=== PATIENT | female | born 1995 | race Caucasian/White ===

== ENCOUNTER 2016-12-26 20:52 | Emergency (ER) | payer OTHER ==
[~2016-12-26] VITALS: Ht 162.6 cm; Wt 62.7 kg
[2016-12-26 21:20] VITALS: TEMP 37.1; Ht 162.6 cm; Wt 62.7 kg
[2016-12-26] MEDS ORDERED: BCPILLS PO (21:31)
[2016-12-26] MEDS ORDERED: AZITHROMYCIN 250 MG TAB PO ONE (22:15)
[2016-12-26] MEDS ORDERED: CEFTRIAXONE SOD 350MG/ML 1 GM VIAL IM ONE (22:15)
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
[2016-12-26 22:52] VITALS: BP 116/73; PULSE 100; O2SAT 99
[2016-12-29 01:11] LABS: CHLAMYDIA TRACH RNA*** NOT DETECTED (NOT DETECTED); GC (NEIS GONORRHOEAE)RNA** NOT DETECTED (NOT DETECTED)
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
== END 2016-12-26 22:53 | disposition home or self-care (01) ==
LOC: C.EDB 20:55 → C.EDD 22:53
DX: T19.2XXA Foreign body in vulva and vagina, initial encounter (principal); T74.21XA Adult sexual abuse, confirmed, initial encounter; Y07.9 Unspecified perpetrator of maltreatment and neglect; Y99.8 Other external cause status

== ENCOUNTER → 2017-02-02 | Outpatient (CLI) | payer OTHER ==
[~2017-02-02] MED LIST: BCPILLS PO
== END | disposition home or self-care (01) ==
LOC: C.LABSPEC 13:08
PROVIDERS: ATTEND Obstetrics & Gynecology
DX: N89.8 Other specified noninflammatory disorders of vagina (principal); Z71.1 Person with feared health complaint in whom no diagnosis is made

== ENCOUNTER 2017-12-05 19:19 | Emergency (ER) | payer OTHER ==
[~2017-12-05] VITALS: Ht 162.6 cm; Wt 62.3 kg
[~2017-12-05 19:19] MED LIST changes: -BCPILLS PO; +OFLO0.3D4 OT
[2017-12-05 19:24] VITALS: TEMP 36.4; Ht 162.6 cm; Wt 62.3 kg
[2017-12-05] MEDS ORDERED: RABIES IMMUNE GLOBULIN (HUMAN) 150 INTER.UNIT/ML 2 ML VIAL IM. ONE (19:45)
[2017-12-05] MEDS ORDERED: RABIES VACCINE (IMOVAX) HUMAN DIPL CELL 2.5 INTER.UNIT/ML SYR IM. ONE (19:45)
[2017-12-05] MEDS ORDERED: CYAN100T PO (20:08)
[2017-12-05] MEDS ORDERED: CHOL1000 PO (20:08)
[2017-12-05] MEDS ORDERED: BIOT1CAP8 PO (20:08)
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
[2017-12-05] MEDS ORDERED: ONDANSETRON 4MG OD TAB PO ONE (21:15)
[2017-12-05] MEDS ORDERED: BCPILLS PO (21:31)
[2017-12-05 21:54] VITALS: BP 122/70; PULSE 72; O2SAT 98
== END 2017-12-05 21:55 | disposition home or self-care (01) ==
LOC: C.EDB 19:19 → C.EDD 21:55
DX: S81.852A Open bite, left lower leg, initial encounter (principal); W54.0XXA Bitten by dog, initial encounter; Z98.890 Other specified postprocedural states; Z20.3 Contact with and (suspected) exposure to rabies; Z23 Encounter for immunization

== ENCOUNTER 2017-12-08 14:01 | Emergency (ER) | payer OTHER ==
[~2017-12-08] VITALS: Ht 162.6 cm; Wt 63.3 kg
[~2017-12-08 14:01] MED LIST changes: +BCPILLS PO; +BIOT1CAP8 PO; +CHOL1000 PO; +CYAN100T PO; -OFLO0.3D4 OT
[2017-12-08 14:02] VITALS: TEMP 36.9; Ht 162.6 cm; Wt 63.3 kg
--- NOTE | 2017-12-08 14:29 | EMERGENCY ROOM VISIT NOTE ---
ED Visit Note First contact with patient: 14:18 CHIEF COMPLAINT: Rabies prophylaxis HISTORY OF PRESENT ILLNESS: This 22-year-old female patient presents to the emergency department for their second rabies shot. The patient has not had any complications from the previous injections. They deny any other complaints. She was originally bitten by a dog 5 days ago. She says the wound is healing well REVIEW OF SYSTEMS: A 6 system review of systems was completed with positives and pertinent negatives listed in the HPI. ALLERGIES: Sulfa and amoxicillin MEDICATIONS: Reviewed PMH: Unchanged from previous visit. PHYSICAL EXAM: Vital Signs: Reviewed Nurse's notes, vital signs stable. GENERAL : 22-year-old female, in no acute distress, well-developed, well-nourished. HEAD: Atraumatic, without temporal or scalp tenderness. EYES: PERRLA, EOMI, no discharge or injection. SKIN: Well-healing puncture wound noted to the posterior calf.. NEUROLOGICAL: Alert and cooperative. Sensory and motor functions grossly intact. EMERGENCY DEPARTMENT COURSE: I examined the patient. The patient was given Imovax IM. The patient was observed for 20 minutes with no reaction. The patient was discharged home in stable condition. DIAGNOSIS: Rabies prophylaxis DISCHARGE INSTRUCTIONS: Please watch for signs of a reaction such as severe redness, itching, difficulty breathing or swallowing. Please return on day 7 and day 14 for subsequent vaccinations.
[2017-12-08] MEDS ORDERED: RABIES VACCINE (IMOVAX) HUMAN DIPL CELL 2.5 INTER.UNIT/ML SYR IM. ONE (14:30)
[2017-12-08 15:26] VITALS: BP 113/63; PULSE 88; O2SAT 99
== END 2017-12-08 15:27 | disposition home or self-care (01) ==
LOC: C.EDB 14:02 → C.EDD 15:27
DX: Z23 Encounter for immunization (principal); Z20.3 Contact with and (suspected) exposure to rabies

== ENCOUNTER 2017-12-12 14:52 | Emergency (ER) | payer OTHER ==
[~2017-12-12] VITALS: Ht 162.6 cm; Wt 62.8 kg
[2017-12-12 14:55] VITALS: BP 118/75; PULSE 83; TEMP 37.1; O2SAT 97; Ht 162.6 cm; Wt 62.8 kg
[2017-12-12] MEDS ORDERED: RABIES VACCINE (IMOVAX) HUMAN DIPL CELL 2.5 INTER.UNIT/ML SYR IM. ONE (15:00)
--- NOTE | 2017-12-12 16:59 | EMERGENCY ROOM VISIT NOTE ---
History First contact with patient: 14:56 Chief Complaint: RABIES VACCINE REPEAT VISIT Stated Complaint: REPEAT RABIES SHOT History of Present Illness The patient is a 22 year old female who presents to the Emergency Room for her third rabies immunization. I saw the patient on her initial visit after she was bitten by a dog. The patient denies any further wound, occasions, and completed antibiotics as previously prescribed. Review of Systems 6 system review was performed and was negative except for pertinent positives and negatives as indicated in history of present illness Past Medical/Surgical History Medical Problems: (1) Other Chronic Nonsuppurative Otitis Media, Bilateral Surgical Problems: (1) Status post myringotomy with tube placement of both ears Family History Unremarkable Social History Smoking Status: Never Smoker Alcohol Use: none Marital Status: single Occupation Status: [employer] student Current/Historical Medications Scheduled Biotin (Biotin), 2 CAP PO DAILY Control Pills ( Control Pills), 1 TAB PO HS Cholecalciferol (Vitamin D3), 2 TAB PO DAILY Cyanocobalamin (Vitamin B-12), 2 TABS PO DAILY Physical Exam Vital Signs Date Time Temp Pulse Resp B/P (MAP) Pulse Ox O2 Delivery O2 Flow Rate FiO2 12/12/17 14:55 37.1 83 18 118/75 97 Room Air Physical Exam CONSTITUTIONAL: Healthy and well nourished. Alert and oriented X 3 with positive affect. HEENT: Normocephalic, atraumatic. Pupils equal, round and reactive. MUSCULOSKELETAL: Examination of the left posterior leg shows a well-healing wound without evidence for surrounding erythema, fluctuance or wound drainage. INTEGUMENTARY: No rash or other significant dermatologic conditions noted. NEUROLOGIC: No focal neurologic deficits noted. Medical Decision & Procedures Medications Administered Medications (Trade) Dose Ordered Sig/[facility] Route Start Time Stop Time Status Last Admin Dose Admin Rabies Vaccine Human Diploid Cell (Imovax Rabies) 2.5 interunit ONCE ONCE IM. 12/12/17 15:00 12/12/17 15:01 DC 12/12/17 15:19 2.5 INTERUNIT ED Course Patient history and physical exam were performed. Nurse's notes were reviewed. Vital signs were reviewed and were normal. The patient was administered Imovax without adverse reaction. The patient will return in one week for her final Imovax injection. Medical Decision Blood Pressure Screening Patient's blood pressure: Normal blood pressure Impression Primary Impression: Rabies, need for prophylactic vaccination against Departure Information Dispostion Home / Self-Care Condition GOOD Forms HOME CARE DOCUMENTATION FORM, IMPORTANT VISIT INFORMATION Patient Instructions My [facility] Additional Instructions Return in one week (Monday12/19/17) for your final rabies immunization. Remember that if you have any potential future rabies exposure, advise your health care provider that you have already undergone this immunization series.
== END 2017-12-12 15:28 | disposition home or self-care (01) ==
LOC: C.EDB 14:54 → C.EDD 15:28
DX: Z20.3 Contact with and (suspected) exposure to rabies (principal); Z23 Encounter for immunization

== ENCOUNTER 2017-12-19 13:58 | Emergency (ER) | payer OTHER ==
[~2017-12-19] VITALS: Ht 162.6 cm; Wt 60.0 kg
[2017-12-19 14:02] VITALS: BP 98/67; PULSE 70; TEMP 36.8; O2SAT 96; Ht 162.6 cm; Wt 60.0 kg
[2017-12-19] MEDS ORDERED: RABIES VACCINE (IMOVAX) HUMAN DIPL CELL 2.5 INTER.UNIT/ML SYR IM. ONE (14:15)
--- NOTE | 2017-12-19 14:15 | EMERGENCY ROOM VISIT NOTE ---
ED Visit Note First contact with patient: 14:02 Chief Complaint: Rabies Return Visit History of Present Illness: This patient is a 22 year old female who presents to the Emergency Department via private vehicle for their final Rabies Vaccination Injections. The patient reports that they had no reaction to previous injection. Patient denies the development of any fevers, chills, sweats, or URI symptoms. Medications: Unchanged from previous visit. Allergies: Amoxicillin and Sulfa PMH: Unchanged from previous visit. SHx: Pt, lives locally ROS: All pertinent positive and negative review of systems are appropriately documented in the History of Present Illness. Physical Exam: VITAL SIGNS - Vital signs and Nursing Notes were reviewed. Stable. GENERAL - 22 year old famel, well-developed, well-nourished, and in no acute distress. SKIN - Without rashes or lesions. ED Course: Previous ED visit note was reviewed by myself prior to patient evaluation. Patient reports no reaction to the previous injection(s). Patient received 2.5 IU of imovax intramuscularly. Patient was observed in the Emergency Department for greater than 20 minutes prior to discharge without signs of reaction. Patient was educated on worrisome symptoms for return visit to the Emergency Department. Patient discharged to home. She notes only bruising on the leg overlying the bite and no redness, drainage or infection signs. Current/Historical Medications Scheduled Control Pills ( Control Pills), 1 TAB PO HS Allergies Coded Allergies: Amoxicillin (Verified Allergy, Unknown, UNKNOWN - CHILDHOOD, 12/19/17) Sulfa Antibiotics (Verified Allergy, Unknown, HIVES, 12/19/17) Vital Signs Date Time Temp Pulse Resp B/P (MAP) Pulse Ox O2 Delivery O2 Flow Rate FiO2 12/19/17 14:02 36.8 70 16 98/67 96 Room Air Medications Administered Medications (Trade) Dose Ordered Sig/Hemanth Route Start Time Stop Time Status Last Admin Dose Admin Rabies Vaccine Human Diploid Cell (Imovax Rabies) 2.5 interunit ONCE ONCE IM. 12/19/17 14:15 12/19/17 14:16 DC 12/19/17 14:22 2.5 INTERUNIT Departure Information Impression Primary Impression: Rabies, need for prophylactic vaccination against Dispostion Home / Self-Care Condition GOOD Referrals No Doctor, Assigned (PCP) Patient Instructions My [facility] Additional Instructions You were seen in the Emergency Department today for your Rabies Prophylaxis Injection. You have successfully completed your rabies series. Return to the emergency department with any new/concerning symptoms.
== END 2017-12-19 14:25 | disposition home or self-care (01) ==
LOC: C.EDB 13:59 → C.EDD 14:25
DX: Z23 Encounter for immunization (principal)

== ENCOUNTER → 2018-02-05 | Outpatient (CLI) | payer OTHER ==
[~2018-02-05] MED LIST changes: -BIOT1CAP8 PO; -CHOL1000 PO; -CYAN100T PO
== END | disposition home or self-care (01) ==
LOC: C.PAPS 14:46
PROVIDERS: ATTEND Obstetrics & Gynecology
DX: Z01.411 Encounter for gynecological examination (general) (routine) with abnormal findings (principal); R87.610 Atypical squamous cells of undetermined significance on cytologic smear of cervix (ASC-US)